=== PATIENT | female | born 1975 | race Caucasian/White ===

== ENCOUNTER 2017-04-01 20:27 | Emergency (ER) | payer OTHER ==
[2017-04-01 22:17] LABS: HEMOGLOBIN 13.5 gm/dl (12.3-15.3); RED BLOOD COUNT 4.25 M/UL (4.00-5.10); WHITE BLOOD COUNT 6.9 K/UL (4.5-11.0)
[2017-04-01 22:38] LABS: BUN/CREATININE RATIO 18 (0-10)
== END 2017-04-01 23:19 | disposition home or self-care (01) ==
LOC: ER1 20:27
PROVIDERS: Physician Assistant
DX: R06.00 Dyspnea, unspecified (principal); M51.26 Other intervertebral disc displacement, lumbar region; Z86.711 Personal history of pulmonary embolism; Z86.718 Personal history of other venous thrombosis and embolism
CPT/HCPCS: 36415; 72131; 80053; 82550; 82553; 83874; 84484; 85025; 93005; 99285; J7050; Q9963